=== PATIENT | female | born 2000 | race Caucasian/White ===

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

== ENCOUNTER 2022-09-19 13:27 | Emergency (ER) | payer BC, MEDICAID ==
[~2022-09-19] VITALS: Ht 157.5 cm; Wt 54.7 kg
[2022-09-19] VITALS (7 sets, daily range): BP systolic 107–128; BP diastolic 63–82; PULSE 104–126; RESP 18–22; TEMP 97.9–98.9; O2SAT 95–100
[~2022-09-19 13:27] MED LIST changes: +PRON INH
[2022-09-19] MEDS ORDERED: ALBUTEROL SULFATE/IPRATROPIU 3 ML SOL IH ONE ×3 (14:02→14:15)
[2022-09-19] MEDS ORDERED: ALBUTEROL 0.083% 2.5 MG/3 ML NEBU INH ONE ×3 (14:35→15:45)
[2022-09-19] MEDS ORDERED: IPRATROPIUM 0.02% 0.5 MG/2.5 ML NEBU INH ONE ×4 (14:35→15:45)
[2022-09-19] MEDS ORDERED: predniSONE 20 MG TAB PO ONE (14:40)
[2022-09-19] MEDS ORDERED: ALBUTEROL 0.083% 2.5 MG/3 ML NEBU INH SCH ×2 (14:50→18:12)
[2022-09-19] MEDS ORDERED: IPRATROPIUM 0.02% 0.5 MG/2.5 ML NEBU INH SCH ×2 (14:50→18:13)
[2022-09-19] MEDS ORDERED: MAG SULF 2000 MG/WATER PREMIX 50 ML IV ONE (15:45)
[2022-09-19 16:31] LABS: BASOPHILS # (AUTO) 0.1 K/uL (0.00-0.22); EOSINOPHILS # (AUTO) 0.9 K/uL (0-0.4); EOSINOPHILS % (AUTO) 12.3 % (0.0-4.0); HEMATOCRIT 34.6 % (36-48); HEMOGLOBIN 10.8 g/dL (12.0-16.0); LYMPHOCYTES # (AUTO) 1.5 K/uL (2.5-16.5); LYMPHOCYTES % (AUTO) 19.8 % (20.5-51.1); MEAN CORPUSCULAR HEMOGLOBIN 23 pg (27-31); MEAN CORPUSCULAR HGB CONC 31 g/dL (33-37); MEAN CORPUSCULAR VOLUME 74.1 fL (80-94); MONOCYTES # (AUTO) 0.8 K/uL (0.8-1.0); MONOCYTES % (AUTO) 10.2 % (1.7-9.3); NEUTROPHILS # (AUTO) 4.3 K/uL (1.8-7.7); NEUTROPHILS % (AUTO) 56.7 % (42.2-75.2); PLATELET COUNT (AUTO) 340 K/uL (140-450); RED BLOOD CELL COUNT(AUTO) 4.67 MIL/uL (4.20-5.40); WHITE BLOOD COUNT (AUTO) 7.6 K/uL (4.5-11.0)
[2022-09-19 16:46] LABS: ANION GAP 12.4 (8-16); CALCIUM 8.4 mg/dL (8.5-10.1); CARBON DIOXIDE 26.4 mmol/L (21-32); CREATININE 0.8 mg/dL (0.6-1.3); POTASSIUM 3.8 mmol/L (3.5-5.1)
== END 2022-09-19 22:01 | disposition short-term general hospital (02) ==
LOC: MED 13:27
DX: J45.901 Unspecified asthma with (acute) exacerbation (principal); Z20.822 Contact with and (suspected) exposure to COVID-19; Z88.0 Allergy status to penicillin; Z79.899 Other long term (current) drug therapy
CPT/HCPCS: 36415; 71045; 80048; 85025; 87426; 94640; 96365; 96366; 99291; J3475; J7512; J7613; J7644

== ENCOUNTER 2023-07-29 16:23 | Emergency (ER) | payer BC ==
[~2023-07-29] VITALS: Ht 160 cm; Wt 55.0 kg
[2023-07-29 16:44] VITALS: BP 117/74; PULSE 99; RESP 20; TEMP 98.3; O2SAT 99
[2023-07-29 16:57] VITALS: BP 116/74; PULSE 86; RESP 18; TEMP 98.3; O2SAT 99
[2023-07-29] MEDS: LIDOCAINE MPF 1% 10 MG/ML VIAL INJ ONE (17:11)
[2023-07-29 18:59] VITALS: O2SAT 99
[2023-07-29] MEDS ORDERED: BACI-418 TP (19:34)
[2023-07-29] MEDS ORDERED: BACITRACIN OINT 500 UNITS/GM PKT TP ONE (19:42)
== END 2023-07-29 19:48 | disposition home or self-care (01) ==
LOC: MED 16:23
DX: S51.012A Laceration without foreign body of left elbow, initial encounter (principal); S60.511A Abrasion of right hand, initial encounter; J45.909 Unspecified asthma, uncomplicated; Z88.0 Allergy status to penicillin; Z79.899 Other long term (current) drug therapy; X58.XXXA Exposure to other specified factors, initial encounter; Y93.89 Activity, other specified; Y92.89 Other specified places as the place of occurrence of the external cause; Y99.8 Other external cause status
CPT/HCPCS: 12002; 73090; 73130; 99284; J2001; Q0092

== ENCOUNTER 2023-08-07 20:14 | Emergency (ER) | payer BC ==
[~2023-08-07] VITALS: Ht 160 cm; Wt 58.1 kg
[~2023-08-07 20:14] MED LIST changes: +BACI-418 TP
[2023-08-07 21:10] VITALS: BP 106/73; PULSE 77; RESP 17; TEMP 97.6; O2SAT 97
[2023-08-07 21:26] VITALS: BP 106/73; PULSE 77; RESP 17; TEMP 97.6; O2SAT 97
== END 2023-08-07 21:26 | disposition home or self-care (01) ==
LOC: MED 20:14
DX: L02.414 Cutaneous abscess of left upper limb (principal); J45.909 Unspecified asthma, uncomplicated; Z48.00 Encounter for change or removal of nonsurgical wound dressing; Z88.0 Allergy status to penicillin; Z79.899 Other long term (current) drug therapy
CPT/HCPCS: 99281